=== PATIENT | male | born 1980 | race American Indian/Alaskan Native ===

== ENCOUNTER 2021-11-12 22:55 | Emergency (ER) | payer SELFPAY ==
[2021-11-12] MEDS ORDERED: Ketorolac 10 MG Tab PO ONE (22:56)
[2021-11-13 00:02] LABS: AMPHETAMINES,URINE NEGATIVE (NEGATIVE); BARBITURATES,URINE NEGATIVE (NEGATIVE); BENZODIAZEPINE,URINE NEGATIVE (NEGATIVE); MDMA (ECSTASY), URINE NEGATIVE (NEGATIVE); METHADONE,URINE NEGATIVE (NEGATIVE); METHAMPHETAMINES,URINE NEGATIVE (NEGATIVE); OPIATES,URINE NEGATIVE (NEGATIVE); OXYCODONE,URINE NEGATIVE (NEGATIVE); PHENCYCLIDINE,URINE NEGATIVE (NEGATIVE); TCA,URINE NEGATIVE (NEGATIVE)
[2021-11-13 00:12] LABS: CHLORIDE,CL 102 mmol/L (98-107); SODIUM,NA 136 mmol/L (136-145)
[2021-11-13 00:27] LABS: CORONAVIRUS COVID-19 NAA NEGATIVE (NEGATIVE)
[2021-11-13 00:47] LABS: ESTIMATED GFR 98 mL/min (>=60)
[2021-11-13] MEDS: Ketorolac 10 MG Tab ONE (01:19)
== END 2021-11-13 01:17 | disposition home or self-care (01) ==
LOC: DL.ED 22:55
DX: R07.89 Other chest pain (principal); I10 Essential (primary) hypertension; F41.9 Anxiety disorder, unspecified; E78.00 Pure hypercholesterolemia, unspecified; Z20.822 Contact with and (suspected) exposure to COVID-19; Z77.22 Contact with and (suspected) exposure to environmental tobacco smoke (acute) (chronic); Z79.899 Other long term (current) drug therapy; Z88.1 Allergy status to other antibiotic agents; Z88.8 Allergy status to other drugs, medicaments and biological substances
CPT/HCPCS: 0240U; 36415; 71045; 80053; 80305-QW; 80307; 82150; 83605; 83690; 83735; 83880; 84443; 84484; 85025; 85379; 86140; 93005; 99285-25; A9270-GY

== ENCOUNTER 2021-11-19 17:38 | Emergency (ER) | payer SELFPAY ==
[2021-11-19] MEDS ORDERED: Sodium Chloride 0.9% 10 ML Syringe FLUSH PRN (17:45)
[2021-11-19 19:17] LABS: CHLORIDE,CL 100 mmol/L (98-107)
[2021-11-19 19:30] LABS: ESTIMATED GFR 100 mL/min (>=60)
[2021-11-19 19:31] LABS: SODIUM,NA 136 mmol/L (136-145)
== END 2021-11-19 20:10 | disposition home or self-care (01) ==
LOC: DL.ED 17:38
DX: R07.9 Chest pain, unspecified (principal); E78.00 Pure hypercholesterolemia, unspecified; I10 Essential (primary) hypertension; E11.9 Type 2 diabetes mellitus without complications; Z88.1 Allergy status to other antibiotic agents; Z88.8 Allergy status to other drugs, medicaments and biological substances; Z79.899 Other long term (current) drug therapy; Z79.84 Long term (current) use of oral hypoglycemic drugs
CPT/HCPCS: 36415; 71045; 80053; 80307; 82150; 83690; 83735; 83880; 84484; 85025; 93005; 99285